=== PATIENT | male | born 1935 | race Caucasian/White ===

== ENCOUNTER 2017-03-03 10:59 | Emergency (ER) | payer OTHER ==
[~2017-03-03] VITALS: Ht 180.3 cm; Wt 109.7 kg
[~2017-03-03 10:59] MED LIST: ADULT LOW DOSE81 M1 PO; ASPIRIN325 MG PO; ATORVASTATIN CA80 MG PO; AUGMENTIN875 MG PO; B-123000 MCG PO; BACTRIM,SEPT1 TABLET PO; CARVEDILOL6.25 MG PO; CIPRO500 MG PO; CIPROFLOXACIN250 MG PO; COUMADIN5 MG PO; CRESTOR40 MG PO; CYANOCOBALAM1000 MCG PO; DIOVAN HCT 11 TABLET PO; FLOMAX0.4 MG PO; HYDRALAZINE HCL25 MG PO; HYDROCHLOROTH12.5 M3 PO; IBUPROFEN200 M1 PO; KEFLEX500 MG PO; KLOR-CON 1010 ME1 PO; LIPITOR80 MG PO; MULTIVITAMIN1 EAC2 PO; NAPROXEN500 MG PO; NEXIUM20 MG PO; NYSTATIN15 GM TP; PERCOCET 5/31 TABLET PO; PLAVIX75 MG PO; PROSCAR5 MG PO; SAW PALMETTO160 MG PO; SAW PALMETTO450 MG PO; TRUSOPT5 ML BOTH EYES; VALSARTAN-HCTZ1 EAC1 PO; VALSARTAN-HCTZ1 EAC2 PO; VALSARTAN160 MG PO; VITAMIN B12-FO1 EACH PO; VITAMIN D1000 INTUN PO; VITAMIN D2000 INTUN PO; XALATAN2.5 ML BOTH EYES; ZETIA10 MG PO; [UNRECOGNIZED DRUG - OTHER]; coumadin; vitamin b-12
[2017-03-03 14:10] VITALS: BP 141/93
[2017-03-04] MEDS ORDERED: PREDNISONE50 MG PO (14:40)
[2017-03-04] MEDS ORDERED: VALTREX1000 MG PO (14:40)
[2017-03-04] MEDS ORDERED: AKWA TEARS OIN3.5 GM BOTH EYES (14:42)
[2017-03-04] MEDS ORDERED: ARTIFICIAL TEAR15 M1 LEFT EYE (14:42)
== END 2017-03-03 14:10 | disposition home or self-care (01) ==
LOC: EME 10:59
DX: S90.31XA Contusion of right foot, initial encounter (principal); W49.09XA Other specified item causing external constriction, initial encounter; H40.9 Unspecified glaucoma; I10 Essential (primary) hypertension; Z98.61 Coronary angioplasty status
CPT/HCPCS: 73630; 99281; 99283

== ENCOUNTER 2017-03-04 11:57 | Emergency (ER) | payer OTHER ==
[~2017-03-04] VITALS: Ht 180.3 cm; Wt 109.4 kg
[2017-03-04 12:48] LABS: HEMATOCRIT 38.1 % (38.0-50.0); MCH 34.1 PG (29.0-34.0); MCHC 32.8 G/DL (30.0-36.0); NRBC (%) 0.5 /100 WBC (0-0); RBC DIS.WIDTH-CV 16.7 % (11.8-14.6); RBC DIS.WIDTH-SD 62.1 % (39-53); RED BLOOD COUNT 3.67 M/uL (4.00-5.50); WHITE BLOOD COUNT 3.7 K/uL (4.1-10.2)
[2017-03-04 12:53] LABS: CHLORIDE 100 mEq/L (99-109); POTASSIUM 4.5 mEq/L (3.7-5.4); SODIUM 137 mEq/L (136-147)
[2017-03-04 12:55] LABS: GLUCOSE 119 mg/dL (70-99)
[2017-03-04 12:57] LABS: ANION GAP 8 MEQ/L (2-14)
[2017-03-04 12:59] LABS: GFR ESTIMATE (CALCULATED) > 59 mL/min/
[2017-03-04 13:00] LABS: UREA NITROGEN (BUN) 16 mg/dL (9-23)
[2017-03-04 13:23] LABS: MCV 103.8 FL (86-99)
[2017-03-04 14:10] LABS: INTER. NORMALIZED RATIO 1.1; PROTHROMBIN TIME 12.1 SEC (10.2-12.9)
[2017-03-04 14:12] LABS: PTT 31.6 SEC (25-37)
[2017-03-04 14:32] LABS: HEMATOLOGY COMMENT 1 SMEAR COMPATIBLE; IMM.PLATELET FRACTION 19.1 (1-7); PLAT.SUFFICIENCY DECREASED; PLATELET COUNT 48 K/uL (156-360)
[2017-03-04] MEDS ORDERED: VALTREX1000 MG PO (14:40)
[2017-03-04] MEDS ORDERED: PREDNISONE50 MG PO (14:40)
[2017-03-04] MEDS ORDERED: AKWA TEARS OIN3.5 GM BOTH EYES (14:42)
[2017-03-04] MEDS ORDERED: ARTIFICIAL TEAR15 M1 LEFT EYE (14:42)
[2017-03-04 14:56] VITALS: BP 125/70
== END 2017-03-04 14:57 | disposition home or self-care (01) ==
LOC: EME 11:57
PROVIDERS: Emergency Medicine
DX: D69.6 Thrombocytopenia, unspecified (principal); G51.0 Bell's palsy; E78.5 Hyperlipidemia, unspecified; I10 Essential (primary) hypertension; I25.2 Old myocardial infarction; K21.9 Gastro-esophageal reflux disease without esophagitis; I25.10 Atherosclerotic heart disease of native coronary artery without angina pectoris; Z98.61 Coronary angioplasty status
CPT/HCPCS: 70450; 71020; 80048; 85027; 85610; 85730; 93005; 99281; 99284; J7512

== ENCOUNTER 2017-09-06 11:11 | Inpatient (IN) | payer OTHER ==
[~2017-09-06] VITALS: Ht 180.3 cm; Wt 114.1 kg
[~2017-09-06 11:11] MED LIST changes: +AKWA TEARS OIN3.5 GM BOTH EYES; +APRESOLINE25 MG PO; +ARTIFICIAL TEAR15 M1 LEFT EYE; +PREDNISONE50 MG PO; +VALTREX1000 MG PO
[2017-09-06 13:01] LABS: HEMATOCRIT 35.3 % (38.0-50.0); HEMOGLOBIN 10.9 G/DL (12.5-16.6); MCH 33.6 PG (29.0-34.0); MCHC 30.9 G/DL (30.0-36.0); NRBC (%) 0.2 /100 WBC (0-0); RED BLOOD COUNT 3.24 M/uL (4.00-5.50); WHITE BLOOD COUNT 20.6 K/uL (4.1-10.2)
[2017-09-06 13:13] LABS: CHLORIDE 102 mEq/L (99-109); POTASSIUM 3.7 mEq/L (3.7-5.4); SODIUM 137 mEq/L (136-147)
[2017-09-06 13:14] LABS: GLUCOSE 169 mg/dL (70-99)
[2017-09-06 13:18] LABS: CREATININE 2.1 mg/dL (0.6-1.3); GFR ESTIMATE (CALCULATED) 33 mL/min/ (58.99-99999)
[2017-09-06 13:19] LABS: UREA NITROGEN (BUN) 62 mg/dL (9-23)
[2017-09-06 13:53] LABS: IMM.PLATELET FRACTION 33.5 (1-7); PLAT.SUFFICIENCY VERY DECREASED
[2017-09-06 13:56] LABS: PLATELET COUNT 25 K/uL (156-360)
[2017-09-06 14:10] LABS: ABS NEUTROPHIL COUNT 19.4; BAND NEUTROPHILS 17.5 % (0-8.0); EOSINOPHIL ABS CT 0; SEG.NEUTROPHILS 76.5 % (46.0-76.0)
[2017-09-06 17:50] LABS: PTT 27.2 SEC (25-37)
[2017-09-06 18:17] LABS: TROP-I INTERPRETATION NEGATIVE; TROPONIN-I 0.02 ng/mL (0.0-0.30)
[2017-09-06] MEDS ORDERED: PROTONIX40 MG PO (18:26)
[2017-09-06 18:27] LABS: APPEARANCE SL.HAZY ((CLEAR)); BILIRUBIN NEGATIVE; BLOOD NEGATIVE; COLOR YELLOW ((YELLOW)); GLUCOSE (STRIP) NEGATIVE; KETONES NEGATIVE; LEUKOCYTES NEGATIVE; NITRITE NEGATIVE; PROTEIN (STRIP) 30; SPECIFIC GRAVITY 1.018 (1.000-1.030)
[2017-09-06] MEDS ORDERED: VALSARTAN-HCTZ1 EAC1 PO (18:32)
[2017-09-06 18:34] LABS: BACTERIA RARE /HPF; CALCIUM OXALATE CRYSTALS 1+ /HPF; EPITHELIAL CELLS RARE /HPF; HYALINE CASTS 0-5 /LPF; MUCUS TRACE /LPF; RED BLOOD CELLS 0-5 /HPF (0-5); UCUL ADDED? NO; WHITE BLOOD CELLS 0-5 /HPF (0-5)
[2017-09-06] MEDS ORDERED: ZOVIRAX400 MG PO (18:35)
[2017-09-06 22:58] VITALS: BP 119/71
[2017-09-06 23:52] VITALS: BP 122/75
[2017-09-07 00:43] LABS: TROP-I INTERPRETATION NEGATIVE; TROPONIN-I 0.03 ng/mL (0.0-0.30)
[2017-09-07 03:55] VITALS: BP 117/87; BP 17/87
[2017-09-07 06:10] LABS: TROP-I INTERPRETATION NEGATIVE; TROPONIN-I 0.02 ng/mL (0.0-0.30)
[2017-09-07 06:23] LABS: CHLORIDE 105 MEQ/L (99-109); GLUCOSE 147 mg/dL (70-99); POTASSIUM 3.1 MEQ/L (3.7-5.4); SODIUM 139 MEQ/L (136-147); UREA NITROGEN (BUN) 42 mg/dL (9-23)
[2017-09-07 06:26] LABS: CREATININE 1.5 MG/DL (0.6-1.3); GFR ESTIMATE (CALCULATED) 48 mL/min/ (58.99-99999)
[2017-09-07 07:06] LABS: HEMATOCRIT 32.6 % (38.0-50.0); HEMOGLOBIN 9.8 G/DL (12.5-16.6); MCH 32.8 PG (29.0-34.0); MCHC 30.1 G/DL (30.0-36.0); NRBC (%) 0.1 /100 WBC (0-0); RBC DIS.WIDTH-CV 17.8 % (11.8-14.6); RBC DIS.WIDTH-SD 71.8 % (39-53); RED BLOOD COUNT 2.99 M/uL (4.00-5.50); WHITE BLOOD COUNT 13.5 K/uL (4.1-10.2)
[2017-09-07 07:24] LABS: IMM.PLATELET FRACTION 28.1 (1-7); PLAT.SUFFICIENCY DECREASED; PLATELET COUNT 30 K/uL (156-360)
[2017-09-07 07:27] VITALS: BP 134/73
[2017-09-07 08:51] LABS: ALBUMIN 2.5 G/DL (3.2-4.8); ALKALINE PHOSPHATASE 53 IU/L (3-129); ALT (GPT) 9 IU/L (3-49); AST (GOT) 14 IU/L (2-34); DIRECT BILIRUBIN 0.3 mg/dL (0.0-0.3); TOTAL BILIRUBIN 0.8 MG/DL (0.0-1.0); TOTAL PROTEIN 5.2 G/DL (6.4-8.3)
[2017-09-07 11:57] VITALS: BP 120/79
[2017-09-07 16:08] VITALS: BP 109/63
[2017-09-07 19:30] VITALS: BP 129/69
[2017-09-08] VITALS: BP 133/64
[2017-09-08 04:47] VITALS: BP 102/57
[2017-09-08 05:51] LABS: HEMATOCRIT 30.4 % (38.0-50.0); HEMOGLOBIN 9.3 G/DL (12.5-16.6); MCH 33.8 PG (29.0-34.0); MCHC 30.6 G/DL (30.0-36.0); MCV 110.5 FL (86-99); NRBC (%) 0.4 /100 WBC (0-0); RBC DIS.WIDTH-CV 18.2 % (11.8-14.6); RBC DIS.WIDTH-SD 73.2 % (39-53); RED BLOOD COUNT 2.75 M/uL (4.00-5.50); WHITE BLOOD COUNT 12.9 K/uL (4.1-10.2)
[2017-09-08 06:15] LABS: CHLORIDE 109 MEQ/L (99-109); CREATININE 1.1 MG/DL (0.6-1.3); GFR ESTIMATE (CALCULATED) > 59 mL/min/ (58.99-99999); GLUCOSE 128 mg/dL (70-99); MAGNESIUM 1.8 mg/dl (1.3-2.7); SODIUM 139 MEQ/L (136-147); UREA NITROGEN (BUN) 34 mg/dL (9-23)
[2017-09-08 06:16] LABS: POTASSIUM 4.1 MEQ/L (3.7-5.4)
[2017-09-08 06:24] LABS: PLAT.SUFFICIENCY DECREASED
[2017-09-08 06:26] LABS: PLATELET COUNT 53 K/uL (156-360)
[2017-09-08 07:30] VITALS: BP 133/70
[2017-09-08 12:00] VITALS: BP 122/66
[2017-09-08 16:00] VITALS: BP 139/72
[2017-09-08 19:15] VITALS: BP 158/95
[2017-09-09 00:20] VITALS: BP 121/64
[2017-09-09 04:10] VITALS: BP 127/63
[2017-09-09 05:43] LABS: CHLORIDE 107 MEQ/L (99-109); GFR ESTIMATE (CALCULATED) > 59 mL/min/ (58.99-99999); GLUCOSE 107 mg/dL (70-99); MAGNESIUM 1.7 mg/dl (1.3-2.7); POTASSIUM 3.8 MEQ/L (3.7-5.4); SODIUM 139 MEQ/L (136-147); UREA NITROGEN (BUN) 23 mg/dL (9-23)
[2017-09-09 06:04] LABS: HEMATOCRIT 29.3 % (38.0-50.0); MCH 33.3 PG (29.0-34.0); MCHC 30.7 G/DL (30.0-36.0); MCV 108.5 FL (86-99); NRBC (%) 0.8 /100 WBC (0-0); RBC DIS.WIDTH-CV 17.9 % (11.8-14.6); RBC DIS.WIDTH-SD 71.7 % (39-53); WHITE BLOOD COUNT 12.9 K/uL (4.1-10.2)
[2017-09-09 06:48] LABS: PLAT.SUFFICIENCY DECREASED; PLATELET COUNT 61 K/uL (156-360)
[2017-09-09 07:20] VITALS: BP 109/56
[2017-09-09 11:45] VITALS: BP 145/73
[2017-09-09 15:30] VITALS: BP 135/74
[2017-09-09 19:15] VITALS: BP 132/65
[2017-09-10 00:15] VITALS: BP 138/68
[2017-09-10 05:00] VITALS: BP 116/57
[2017-09-10 09:00] VITALS: BP 121/83
[2017-09-10 12:00] VITALS: BP 128/68
[2017-09-10 17:00] VITALS: BP 143/82
[2017-09-10 21:00] VITALS: BP 112/65
[2017-09-11] VITALS (7 sets, daily range): BP systolic 110–133; BP diastolic 61–80
[2017-09-11 06:55] LABS: HEMATOCRIT 29.2 % (38.0-50.0); HEMOGLOBIN 8.9 G/DL (12.5-16.6); MCHC 30.5 G/DL (30.0-36.0); MCV 108.1 FL (86-99); NRBC (%) 0.7 /100 WBC (0-0); RBC DIS.WIDTH-CV 17.7 % (11.8-14.6); RBC DIS.WIDTH-SD 70.6 % (39-53); WHITE BLOOD COUNT 8.8 K/uL (4.1-10.2)
[2017-09-11 07:13] LABS: PLAT.SUFFICIENCY DECREASED; PLATELET COUNT 78 K/uL (156-360)
[2017-09-12 02:58] VITALS: BP 128/65
[2017-09-12 08:00] VITALS: BP 121/68
[2017-09-12 11:29] VITALS: BP 120/65
[2017-09-12] MEDS ORDERED: KEFLEX500 MG PO (11:50)
[2017-09-12] MEDS ORDERED: FLORASTOR250 MG PO (11:52)
== END 2017-09-12 15:00 | disposition home or self-care (01) | DRG 683 ==
LOC: EME 11:11 → EDOF 16:29 → 4EAST 16:29 → ENRESERV 16:33 → EDOF 18:14 → ENRESERV 18:15 → 4EAST 22:45 → CANRESERV 09-11 15:40 → ENRESERV 09-11 15:40 → 4EAST 09-12 15:00
PROVIDERS: Hospitalist; Internal Medicine; Physician Assistant
DX: N17.9 Acute kidney failure, unspecified (principal); L03.116 Cellulitis of left lower limb; D46.9 Myelodysplastic syndrome, unspecified; D61.818 Other pancytopenia; E87.6 Hypokalemia; E86.0 Dehydration; I87.8 Other specified disorders of veins; L97.929 Non-pressure chronic ulcer of unspecified part of left lower leg with unspecified severity; I89.0 Lymphedema, not elsewhere classified; I35.0 Nonrheumatic aortic (valve) stenosis; I48.0 Paroxysmal atrial fibrillation; I49.3 Ventricular premature depolarization; E78.5 Hyperlipidemia, unspecified; I10 Essential (primary) hypertension; I25.10 Atherosclerotic heart disease of native coronary artery without angina pectoris; R60.0 Localized edema; M79.1 Myalgia; K21.9 Gastro-esophageal reflux disease without esophagitis; R53.1 Weakness; R68.83 Chills (without fever); E66.9 Obesity, unspecified; Z68.34 Body mass index [BMI] 34.0-34.9, adult; Z79.01 Long term (current) use of anticoagulants; I25.2 Old myocardial infarction; Z79.82 Long term (current) use of aspirin; Z86.718 Personal history of other venous thrombosis and embolism; Z95.5 Presence of coronary angioplasty implant and graft
CPT/HCPCS: 71046; 76770; 80048; 80076; 81003; 83605; 83735; 84484; 85025; 85027; 85610; 85730; 87040; 87641; 90686; 93005; 93306; 93971; 99281; 99285; A6212; A6260; J0690; J1160; J1644; J3370; J7030

== ENCOUNTER 2017-10-25 16:12 | Inpatient (IN) | payer OTHER ==
[~2017-10-25] VITALS: Ht 180.3 cm; Wt 111.9 kg
[~2017-10-25 16:12] MED LIST changes: +FLORASTOR250 MG PO; +PROTONIX40 MG PO; +ZOVIRAX400 MG PO
[2017-10-25 19:24] LABS: HEMATOCRIT 33.7 % (38.0-50.0); HEMOGLOBIN 10.9 G/DL (12.5-16.6); MCH 34.8 PG (29.0-34.0); MCHC 32.3 G/DL (30.0-36.0); MCV 107.7 FL (86-99); NRBC (%) 0.3 /100 WBC (0-0); RBC DIS.WIDTH-CV 17.2 % (11.8-14.6); RBC DIS.WIDTH-SD 67.8 % (39-53); RED BLOOD COUNT 3.13 M/uL (4.00-5.50); WHITE BLOOD COUNT 11.2 K/uL (4.1-10.2)
[2017-10-25 19:27] LABS: ALBUMIN 3.4 g/dL (3.2-4.8)
[2017-10-25 19:28] LABS: CHLORIDE 102 mEq/L (99-109); POTASSIUM 4.3 mEq/L (3.7-5.4); SODIUM 138 mEq/L (136-147)
[2017-10-25 19:30] LABS: GLUCOSE 113 mg/dL (70-99); TOTAL PROTEIN 7.7 g/dL (6.4-8.3)
[2017-10-25 19:32] LABS: TOTAL BILIRUBIN 1.2 mg/dL (0.0-1.0)
[2017-10-25 19:33] LABS: ALKALINE PHOSPHATASE 53 IU/L (3-129)
[2017-10-25 19:34] LABS: CREATININE 1.4 mg/dL (0.6-1.3); GFR ESTIMATE (CALCULATED) 52 mL/min/ (58.99-99999)
[2017-10-25 19:35] LABS: AST (GOT) 16 IU/L (2-34); UREA NITROGEN (BUN) 41 mg/dL (9-23)
[2017-10-25 19:36] LABS: ALT (GPT) 13 IU/L (3-49)
[2017-10-25 20:25] LABS: HEMATOLOGY COMMENT 1 SN; PLAT.SUFFICIENCY VERY DECREASED
[2017-10-25 20:26] LABS: PLATELET COUNT 28 K/uL (156-360)
[2017-10-25] MEDS ORDERED: K-DUR10 MEQ PO (21:02)
[2017-10-25] MEDS ORDERED: ASPIR 8181 M1 PO (21:02)
[2017-10-25] MEDS ORDERED: VALSARTAN-HCTZ1 EAC1 PO (21:03)
[2017-10-25] MEDS ORDERED: CEPHALEXIN500 MG PO (21:05)
[2017-10-25] MEDS ORDERED: COMBIGAN O20 DROP/5 BOTH EYES (21:13)
[2017-10-26 01:05] VITALS: BP 141/79
[2017-10-26 03:47] VITALS: BP 138/72
[2017-10-26 06:22] LABS: BASOPHIL (%) 0.7 % (0-1); BASOPHIL COUNT 0.1 K/uL (0-0.1); EOSINOPHIL (%) 0 % (0-5); HEMATOCRIT 28.7 % (38.0-50.0); LYMPHOCYTE (%) 14.3 % (15-42); MCH 33.8 PG (29.0-34.0); MCHC 31.4 G/DL (30.0-36.0); MCV 107.9 FL (86-99); MONOCYTE (%) 10.5 % (3-12); MONOCYTE COUNT 0.7 K/uL (0-0.8); NEUTROPHIL (%) 69.5 % (45-76); NEUTROPHIL COUNT 4.9 K/uL (1.8-6.4); RBC DIS.WIDTH-CV 17.2 % (11.8-14.6); RBC DIS.WIDTH-SD 68.6 % (39-53); RED BLOOD COUNT 2.66 M/uL (4.00-5.50); WHITE BLOOD COUNT 7.1 K/uL (4.1-10.2)
[2017-10-26 06:35] LABS: CHLORIDE 105 MEQ/L (99-109); CREATININE 1.2 MG/DL (0.6-1.3); GFR ESTIMATE (CALCULATED) > 59 mL/min/ (58.99-99999); GLUCOSE 118 mg/dL (70-99); POTASSIUM 3.5 MEQ/L (3.7-5.4); SODIUM 138 MEQ/L (136-147); UREA NITROGEN (BUN) 32 mg/dL (9-23)
[2017-10-26 06:56] LABS: IMM.PLATELET FRACTION 24.1 (1-7); PLAT.SUFFICIENCY DECREASED; PLATELET COUNT 34 K/uL (156-360)
[2017-10-26 08:36] VITALS: BP 92/54
[2017-10-26 12:46] VITALS: BP 125/65
[2017-10-26 16:01] VITALS: BP 102/58
[2017-10-26 23:32] VITALS: BP 98/55
[2017-10-27 00:22] VITALS: BP 109/64
[2017-10-27 06:43] LABS: HEMATOCRIT 28.8 % (38.0-50.0); HEMOGLOBIN 8.9 G/DL (12.5-16.6); MCH 33.7 PG (29.0-34.0); MCHC 30.9 G/DL (30.0-36.0); MCV 109.1 FL (86-99); NRBC (%) 0.4 /100 WBC (0-0); RBC DIS.WIDTH-CV 17.1 % (11.8-14.6); RBC DIS.WIDTH-SD 68.4 % (39-53); RED BLOOD COUNT 2.64 M/uL (4.00-5.50); WHITE BLOOD COUNT 7.3 K/uL (4.1-10.2)
[2017-10-27 06:44] LABS: PLATELET COUNT 58 K/uL (156-360)
[2017-10-27 07:00] LABS: CHLORIDE 103 MEQ/L (99-109); CREATININE 1.3 MG/DL (0.6-1.3); GFR ESTIMATE (CALCULATED) 57 mL/min/ (58.99-99999); GLUCOSE 119 mg/dL (70-99); SODIUM 136 MEQ/L (136-147); UREA NITROGEN (BUN) 29 mg/dL (9-23)
[2017-10-27 09:06] VITALS: BP 121/58
[2017-10-27 16:30] VITALS: BP 137/67
[2017-10-28 00:01] VITALS: BP 100/55
[2017-10-28 07:42] LABS: CHLORIDE 104 MEQ/L (99-109); CREATININE 1.1 MG/DL (0.6-1.3); GFR ESTIMATE (CALCULATED) > 59 mL/min/ (58.99-99999); GLUCOSE 136 mg/dL (70-99); POTASSIUM 4.1 MEQ/L (3.7-5.4); SODIUM 139 MEQ/L (136-147); UREA NITROGEN (BUN) 23 mg/dL (9-23)
[2017-10-28 07:54] LABS: HEMATOCRIT 28.6 % (38.0-50.0); HEMOGLOBIN 8.8 G/DL (12.5-16.6); MCH 33.3 PG (29.0-34.0); MCHC 30.8 G/DL (30.0-36.0); MCV 108.3 FL (86-99); NRBC (%) 0.9 /100 WBC (0-0); PLATELET COUNT 61 K/uL (156-360); RBC DIS.WIDTH-CV 17.1 % (11.8-14.6); RBC DIS.WIDTH-SD 67.7 % (39-53); RED BLOOD COUNT 2.64 M/uL (4.00-5.50); WHITE BLOOD COUNT 7.4 K/uL (4.1-10.2)
[2017-10-28 09:13] VITALS: BP 178/81
[2017-10-28 15:39] VITALS: BP 118/59
[2017-10-28 23:19] VITALS: BP 100/53
[2017-10-29 07:45] VITALS: BP 132/93
[2017-10-29 16:18] VITALS: BP 130/83
[2017-10-29 23:23] VITALS: BP 94/63
[2017-10-30 08:30] VITALS: BP 149/75
[2017-10-30] MEDS ORDERED: AMOX TR-K CLV1 EAC4 PO (12:28)
== END 2017-10-30 14:39 | disposition home or self-care (01) | DRG 603 ==
LOC: EME 16:12 → 2EAST 22:43 → ENRESERV 22:43 → EDOF 22:43 → ENRESERV 22:55 → 2EAST 10-26 00:45
PROVIDERS: Hospitalist; Internal Medicine; Physician Assistant
DX: L03.116 Cellulitis of left lower limb (principal); N17.9 Acute kidney failure, unspecified; I48.0 Paroxysmal atrial fibrillation; D46.9 Myelodysplastic syndrome, unspecified; D61.818 Other pancytopenia; I89.0 Lymphedema, not elsewhere classified; I25.10 Atherosclerotic heart disease of native coronary artery without angina pectoris; I10 Essential (primary) hypertension; E78.5 Hyperlipidemia, unspecified; I35.0 Nonrheumatic aortic (valve) stenosis; R73.03 Prediabetes; E66.9 Obesity, unspecified; Z68.34 Body mass index [BMI] 34.0-34.9, adult; Z79.2 Long term (current) use of antibiotics; Z95.5 Presence of coronary angioplasty implant and graft; Z82.49 Family history of ischemic heart disease and other diseases of the circulatory system; Z82.3 Family history of stroke
CPT/HCPCS: 80048; 80053; 83605; 85025; 85027; 87040; 93005; 93971; 99281; 99285; A6212; A6260; J0295; J0690; J0696; J7030; J7040; J7050; S0039